=== PATIENT | male | born 1990 | race Caucasian/White ===

== ENCOUNTER 2018-11-12 23:50 | Emergency (ER) | payer OTHER ==
[~2018-11-12] VITALS: Ht 170.2 cm; Wt 76.2 kg
[2018-11-13 00:09] VITALS: Ht 170.2 cm; Wt 76.2 kg
[2018-11-13 01:02] VITALS: BP 120/74
== END 2018-11-13 01:02 | disposition home or self-care (01) ==
LOC: ED 23:50
DX: L50.8 Other urticaria (principal)
CPT/HCPCS: J7512